=== PATIENT | male | born 1960 | race Hispanic/Latino ===

== ENCOUNTER 2020-07-06 09:52 | Inpatient (IN) | payer OTHER, SELFPAY ==
[~2020-07-06] VITALS: Ht 157.5 cm; Wt 56.3 kg
[2020-07-06] MEDS ORDERED: KETOROLAC TROMETHAMINE 60 MG/2 ML VIAL ONE (10:13)
[2020-07-06 10:48] LABS: BASOPHILS % (AUTO) 0.3 % (0.0-5.0); EOSINOPHILS % (AUTO) 0.3 % (0.0-8.0); HEMATOCRIT 34.1 % (42-54); LYMPHOCYTES % (AUTO) 4.4 % (21.0-51.0); MEAN CORPUSCULAR HEMOGLOBIN 31.9 pg (27.0-33.0); MEAN CORPUSCULAR HGB CONC 36.4 g/dL (32.0-36.0); MEAN CORPUSCULAR VOLUME 87.7 fL (79-99); MONOCYTES % (AUTO) 6.5 % (3.0-13.0); PLATELET COUNT (AUTO) 218 K/uL (130-400); RED BLOOD CELL COUNT(AUTO) 3.89 MIL/uL (4.50-6.20); RED CELL DISTRIBUTION WIDTH 11.2 % (11.0-15.5); WHITE BLOOD COUNT (AUTO) 21.5 K/uL (4.8-10.8)
[2020-07-06 10:52] LABS: CREATININE 1.7 mg/dL (0.5-1.5); POTASSIUM 5.8 mmol/L (3.5-5.1)
[2020-07-06] MEDS ORDERED: LIDOCAINE HCL 1% 20 ML VIAL ONE (11:04)
[2020-07-06] MEDS ORDERED: ZOSYN 3.375GM+NS 50ML 50 ML IV ONE (12:39)
[2020-07-06] MEDS ORDERED: INSULIN HUMULIN R 100 UNIT/ML 3ML ONE ×2 (12:39→21:57)
[2020-07-06] MEDS ORDERED: SODIUM CHLORIDE 0.9% 1000ML 1,000 ML IV ONE (12:40)
[2020-07-06] MEDS ORDERED: VANCOMYCIN 1GM+NS 250ML 250 ML IV ONE (12:41)
[2020-07-06] MEDS ORDERED: VANCOMYCIN 1GM+NS 250ML 250 ML IV SCH (14:00)
[2020-07-06] MEDS ORDERED: VANCOMYCIN PROTOCOL PER PHARMACY IV PRN (14:00)
[2020-07-06] MEDS ORDERED: ONDANSETRON HCL 4 MG/2 ML VIAL IV PRN (14:00)
[2020-07-06] MEDS ORDERED: ACETAMINOPHEN 325 MG TAB PO PRN (14:00)
[2020-07-06] MEDS ORDERED: LACTULOSE 20 GM/30 ML UDCUP PO PRN (14:00)
[2020-07-06 14:31] LABS: CRP QUANTITATIVE 207.4 mg/L (0.00-9.0)
[2020-07-06] MEDS ORDERED: ACETAMINOPHEN 325 MG TAB ONE (17:46)
[2020-07-06] MEDS ORDERED: VANCOMYCIN 500MG+NS 100ML 100 ML IV SCH (18:00)
[2020-07-06 18:19] LABS: HEMOGLOBIN A1C 9.8 % (4.0-6.0)
[2020-07-06 21:40] VITALS: BP 179/87
[2020-07-06] MEDS: ZOSYN 3.375GM+NS 50ML 50 ML IV SCH (22:07)
[2020-07-06] MEDS: SODIUM CHLORIDE 0.9% 1000ML 1,000 ML IV SCH (22:07)
[2020-07-06] MEDS: INSULIN GLARGINE 100 UNITS/ML 10 ML VIAL SQ SCH (22:22)
[2020-07-06] MEDS: ACETAMINOPHEN-CODEINE 300/30MG TAB PO PRN (22:30)
[2020-07-06] MEDS ORDERED: AMLODIPINE BESYLATE 5 MG TAB ONE (22:41)
[2020-07-06] MEDS ORDERED: AMLODIPINE BESYLATE 5 MG TAB PO SCH (22:45)
[2020-07-06] MEDS ORDERED: DEXTROSE 50%-WATER 50 ML DISP.SYRIN IV PRN (22:45)
[2020-07-06] MEDS ORDERED: GLUCAGON 1MG KIT 1 MG ML IM PRN (22:45)
[2020-07-07] VITALS (23 sets, daily range): BP systolic 121–188; BP diastolic 68–109
[2020-07-07] MEDS: VANCOMYCIN 500MG+NS 100ML 100 ML IV SCH ×2 (02:04→16:00)
[2020-07-07] MEDS: ZOSYN 3.375GM+NS 50ML 50 ML IV SCH ×3 (05:40→21:21)
[2020-07-07] MEDS: INSULIN HUMULIN R 100 UNIT/ML 3ML SQ SCH ×4 (06:44→22:54)
[2020-07-07] MEDS: ENOXAPARIN SODIUM 40 MG/0.4 ML SYRINGE SQ SCH (09:00)
[2020-07-07] MEDS: FAMOTIDINE 20MG TAB 20 MG TAB PO SCH (09:00)
[2020-07-07] MEDS: AMLODIPINE BESYLATE 5 MG TAB PO SCH (11:18)
[2020-07-07] MEDS: SODIUM CHLORIDE 0.9% 1000ML 1,000 ML IV SCH ×2 (11:20)
[2020-07-07] MEDS: ACETAMINOPHEN-CODEINE 300/30MG TAB PO PRN ×2 (12:18→21:20)
[2020-07-07] MEDS ORDERED: ONDANSETRON HCL 4 MG/2 ML VIAL ONE (15:32)
[2020-07-07] MEDS ORDERED: SUCCINYLCHOLINE CHLORIDE 20 MG/ML 10 ML VIAL ONE (15:32)
[2020-07-07] MEDS ORDERED: LIDOCAINE PF 2% 5ML ABBOJECT ONE (15:32)
[2020-07-07] MEDS ORDERED: DEXAMETHASONE SOD PHOSPHATE 10MG/ML 1ML VIAL ONE (15:33)
[2020-07-07] MEDS ORDERED: GLYCOPYRROLATE 1 MG/5 ML SYRINGE ONE (15:33)
[2020-07-07] MEDS ORDERED: NEOSTIGMINE 5MG/5ML SYR IV ONE (15:33)
[2020-07-07] MEDS ORDERED: PROPOFOL 10 MG/ML 20ML VIAL IV ONE (15:33)
[2020-07-07] MEDS ORDERED: MIDAZOLAM HCL 1 MG/ML 2ML VIAL ONE (15:34)
[2020-07-07] MEDS ORDERED: ROCURONIUM 10MG/1ML SYR 10 MG/ML ML ONE (15:34)
[2020-07-07] MEDS ORDERED: FENTANYL CITRATE PF 50 MCG/1 ML 2ML VIAL ONE (15:34)
[2020-07-07] MEDS ORDERED: ALBUMIN (HUMAN) 5% 500 ML IV ONE (16:52)
--- NOTE | 2020-07-07 17:00 | NUR ---
CM NOTE PATIENT NOT IN ROOM, CM TO FOLLOW UP FOR IA INFORMATION. Addendum: 07/08/20 at 0911 by GOPAL MOURA RN CM Amended: Links added.
[2020-07-07] MEDS ORDERED: METOCLOPRAMIDE 10 MG/2 ML VIAL ONE (17:30)
[2020-07-07] MEDS ORDERED: POTASSIUM CHLORIDE 20MEQ/100ML 100 ML IV PRN (19:45)
[2020-07-07] MEDS: INSULIN GLARGINE 100 UNITS/ML 10 ML VIAL SQ SCH (22:56)
[2020-07-08] VITALS (7 sets, daily range): BP systolic 145–175; BP diastolic 71–87
[2020-07-08] MEDS: VANCOMYCIN 500MG+NS 100ML 100 ML IV SCH ×2 (02:08→13:31)
[2020-07-08] MEDS: SODIUM CHLORIDE 0.9% 1000ML 1,000 ML IV SCH ×3 (05:01→17:11)
[2020-07-08] MEDS: ZOSYN 3.375GM+NS 50ML 50 ML IV SCH ×3 (05:01→20:20)
[2020-07-08 05:20] LABS: HEMATOCRIT 30.2 % (42-54); MEAN CORPUSCULAR HEMOGLOBIN 31.9 pg (27.0-33.0); MEAN CORPUSCULAR HGB CONC 35.1 g/dL (32.0-36.0); RED BLOOD CELL COUNT(AUTO) 3.32 MIL/uL (4.50-6.20); RED CELL DISTRIBUTION WIDTH 11.2 % (11.0-15.5); WHITE BLOOD COUNT (AUTO) 19.1 K/uL (4.8-10.8)
[2020-07-08] MEDS ORDERED: VANCOMYCIN 1GM+NS 250ML 250 ML IV SCH (06:00)
[2020-07-08] MEDS: INSULIN HUMULIN R 100 UNIT/ML 3ML SQ SCH ×4 (06:33→20:20)
--- NOTE | 2020-07-08 07:58 | NUR ---
PATIENT UPDATE PT CAME BACK FROM SURGERY AT [facility] LAST NIGHT S/P ARTHROTOMY, INCISION AND DRAINAGE TO THE RT KNEE. DRESSING DRY AND INTACT TO THE RT KNEE WITH [address] POST OP VITALS TAKEN, PT'S BP ON THE HIGH SIDE, TYLENOL #3 2 TABS GIVEN FOR A PAIN SCORE OF 10. PT NOTED CONFUSED POST OP. FOUND PT AT 2200 AFTER HE PULLED OFF THE DRESSING FROM THE RT KNEE AND WAS ABOUT TO PULL ON THE ASTER. PT WAS ALERTED RIGHT AWAY. HE SAID HE'S WONDERING WHAT THAT IS ON HIS RT KNEE. EXPLAINED THAT DR. ESTRADA DID SURGERY ON HIS RT KNEE AND LEFT THE ASTER DRAIN . SITE PAINTED WITH BETADINE, 4X4 GAUZE AND ABD PAD APPLIED AND WRAPPED KERLIX ROLL AROUND THE KNEE, REINFORCED WITH THE JUSTIN WRAP. PT ALSO MADE AWARE TO CALL SHOULD HE NEEDS TO GET UP TO THE RESTROOM. FOUND HIM COMING BACK FR THE TOILET WITHOUT A GOWN ON WITH THE ASTER DRAIN HANGING ON THE SIDE. REINFORCED SAFETY PRECAUTIONS AGAIN. REORIENTED X 3, BED ALARM TURNED ON, PT TO BE MONITORED MORE CLOSELY NOW THAN BEFORE.
[2020-07-08] MEDS: ENOXAPARIN SODIUM 40 MG/0.4 ML SYRINGE SQ SCH (08:30)
[2020-07-08] MEDS: AMLODIPINE BESYLATE 5 MG TAB PO SCH (08:30)
[2020-07-08] MEDS: FAMOTIDINE 20MG TAB 20 MG TAB PO SCH (08:30)
--- NOTE | 2020-07-08 13:57 | NUR ---
PER WGT TO RIGHT LEG TOLERATED.
[2020-07-08] MEDS ORDERED: VANCOMYCIN 500MG+NS 100ML 100 ML IV SCH (17:30)
[2020-07-08] MEDS: INSULIN GLARGINE 100 UNITS/ML 10 ML VIAL SQ SCH (20:21)
[2020-07-08] MEDS ORDERED: LABETALOL 20 MG/4 ML DISP.SYRIN IV SCH (23:00)
[2020-07-09] VITALS (7 sets, daily range): BP systolic 143–184; BP diastolic 72–94
[2020-07-09] MEDS: CEFAZOLIN SODIUM 1 GM VIAL IVP SCH ×3 (00:21→17:55)
[2020-07-09] MEDS: ZOSYN 3.375GM+NS 50ML 50 ML IV SCH (04:43)
[2020-07-09 05:10] LABS: BASOPHILS % (AUTO) 0.1 % (0.0-5.0); EOSINOPHILS % (AUTO) 0.2 % (0.0-8.0); HEMATOCRIT 28.8 % (42-54); LYMPHOCYTES % (AUTO) 5.7 % (21.0-51.0); MEAN CORPUSCULAR HEMOGLOBIN 31.7 pg (27.0-33.0); MEAN CORPUSCULAR HGB CONC 35.4 g/dL (32.0-36.0); MEAN CORPUSCULAR VOLUME 89.4 fL (79-99); MONOCYTES % (AUTO) 6.5 % (3.0-13.0); NEUTROPHILS % (AUTO) 86.9 % (40.0-77.0); PLATELET COUNT (AUTO) 228 K/uL (130-400); RED BLOOD CELL COUNT(AUTO) 3.22 MIL/uL (4.50-6.20); RED CELL DISTRIBUTION WIDTH 11.3 % (11.0-15.5); WHITE BLOOD COUNT (AUTO) 21.9 K/uL (4.8-10.8)
[2020-07-09 05:23] LABS: CREATININE 1.2 mg/dL (0.5-1.5); CRP QUANTITATIVE 179.9 mg/L (0.00-9.0); POTASSIUM 4.7 mmol/L (3.5-5.1)
[2020-07-09] MEDS: INSULIN HUMULIN R 100 UNIT/ML 3ML SQ SCH ×7 (05:32→21:00)
[2020-07-09] MEDS ORDERED: VANCOMYCIN 1GM+NS 250ML 250 ML IV SCH (06:00)
[2020-07-09 06:12] LABS: ERYTHROCYTE SEDIMENTATION RATE 134 MM/HR (0-20)
[2020-07-09] MEDS ORDERED: COMPOUND IV REFRIGERATED 1 EACH IVSOLN MISC PRN (07:45)
[2020-07-09] MEDS: FAMOTIDINE 20MG TAB 20 MG TAB PO SCH (09:17)
[2020-07-09] MEDS: AMLODIPINE BESYLATE 5 MG TAB PO SCH (09:17)
[2020-07-09] MEDS: METOPROLOL TARTRATE 25 MG TAB PO SCH ×2 (09:18→21:21)
[2020-07-09] MEDS: ENOXAPARIN SODIUM 40 MG/0.4 ML SYRINGE SQ SCH (09:18)
[2020-07-09] MEDS: ACETAMINOPHEN-CODEINE 300/30MG TAB PO PRN ×2 (09:19→17:56)
[2020-07-09] MEDS ORDERED: VANCOMYCIN 750MG + NS 250 ML IV SCH ×2 (12:00)
[2020-07-09] MEDS ORDERED: KETOROLAC TROMETHAMINE 30MG/ML IV PRN (14:00)
[2020-07-09] MEDS ORDERED: BISACODYL 5 MG TABLET.DR PO PRN (19:45)
[2020-07-09] MEDS: INSULIN GLARGINE 100 UNITS/ML 10 ML VIAL SQ SCH (21:00)
[2020-07-09] MEDS: ACETAMINOPHEN 325 MG TAB PO PRN (21:58)
[2020-07-10] VITALS (24 sets, daily range): BP systolic 128–176; BP diastolic 67–96
[2020-07-10] MEDS: CEFAZOLIN SODIUM 1 GM VIAL IVP SCH ×3 (00:08→18:02)
[2020-07-10] MEDS ORDERED: METOPROLOL TARTRATE 1 MG/ML 5ML VIAL IV ONE (04:20)
--- NOTE | 2020-07-10 04:24 | NUR ---
Patient's b/p up to 182/76, hr of 100 and also 176/87 with hr of 106. Bjorn ASH MIXING TANK OPERATOR paged via answering service, answered within a few minutes. Informed him of above, informed him what b/p medication he had taken yesterday, orders received for Lopressor 5 mg IVP x1 . Patient made aware of new orders, verbalized understanding.
[2020-07-10] MEDS: METOPROLOL TARTRATE 1 MG/ML 5ML VIAL IV SCH (04:30)
--- NOTE | 2020-07-10 05:16 | NUR ---
Patient's b/p down to 168/72 manual reading and hr of 96. No s/s of elevated b/p.
[2020-07-10] MEDS: INSULIN HUMULIN R 100 UNIT/ML 3ML SQ SCH ×7 (05:26→20:06)
[2020-07-10 05:53] LABS: BASOPHILS % (AUTO) 0.2 % (0.0-5.0); EOSINOPHILS % (AUTO) 0.1 % (0.0-8.0); HEMATOCRIT 34.4 % (42-54); LYMPHOCYTES % (AUTO) 6.6 % (21.0-51.0); MEAN CORPUSCULAR HEMOGLOBIN 31.4 pg (27.0-33.0); MEAN CORPUSCULAR HGB CONC 34.9 g/dL (32.0-36.0); MEAN CORPUSCULAR VOLUME 90.1 fL (79-99); MONOCYTES % (AUTO) 5.9 % (3.0-13.0); NEUTROPHILS % (AUTO) 86.2 % (40.0-77.0); PLATELET COUNT (AUTO) 278 K/uL (130-400); RED BLOOD CELL COUNT(AUTO) 3.82 MIL/uL (4.50-6.20); RED CELL DISTRIBUTION WIDTH 11.2 % (11.0-15.5); WHITE BLOOD COUNT (AUTO) 18.4 K/uL (4.8-10.8)
[2020-07-10 06:16] LABS: CREATININE 1.1 mg/dL (0.5-1.5); POTASSIUM 4.4 mmol/L (3.5-5.1)
[2020-07-10 06:39] LABS: CRP QUANTITATIVE 187.9 mg/L (0.00-9.0)
--- NOTE | 2020-07-10 07:05 | NUR ---
REPORT TAKEN FROM P.M. NURSE, PT TAKEN TO PROCEDURE. UNABLE TO COMPLETE ASSESSMENT AT THIS TIME.
[2020-07-10 07:12] LABS: ERYTHROCYTE SEDIMENTATION RATE 136 MM/HR (0-20)
[2020-07-10] MEDS ORDERED: SODIUM CHLORIDE 0.9% 1000ML 1,000 ML IV ONE (07:16)
[2020-07-10] MEDS ORDERED: METOCLOPRAMIDE 10 MG/2 ML VIAL ONE (07:28)
[2020-07-10] MEDS ORDERED: ONDANSETRON HCL 4 MG/2 ML VIAL ONE (07:28)
[2020-07-10] MEDS ORDERED: LIDOCAINE HCL 2% 20ML ONE (07:37)
[2020-07-10] MEDS ORDERED: ROPIVACAINE 0.5% 5MG/ML 30ML IJ ONE (07:37)
[2020-07-10] MEDS ORDERED: PROPOFOL 10 MG/ML 20ML VIAL IV ONE (08:08)
[2020-07-10] MEDS: ENOXAPARIN SODIUM 40 MG/0.4 ML SYRINGE SQ SCH (09:00)
[2020-07-10 09:37] LABS: ABG BASE EXCESS -3.3 mmol/L (-2.0-3.0); ABG HCO3 18.3 mmol/L (21.0-28.0); ABG OXYGEN SATURATION 98.6 % (95.0-99.0); ABG PCO2 23 mmHg (35-48)
--- NOTE | 2020-07-10 10:20 | NUR ---
PT BACK IN ROOM POST-PROCEDURE. VS STABLE PT AAOX3. PT DENIES ANY PAIN , IN NO APPARENT DISTRESS. WOUND VAC NOTED TO RT KNEE, SETTINGS AT 125 mmHg continuous,AND ASTER DRAIN TO RT KNEE DRESSING DRY AND INTACT. PT REMAINS IN BED WITH SIDE RAILS UP X2 WITH CALL LIGHT IN REACH. WILL CONTINUE TO MONITOR PT.
[2020-07-10] MEDS: FAMOTIDINE 20MG TAB 20 MG TAB PO SCH (13:09)
[2020-07-10] MEDS: AMLODIPINE BESYLATE 5 MG TAB PO SCH (13:09)
[2020-07-10] MEDS: METOPROLOL TARTRATE 25 MG TAB PO SCH ×2 (13:10→20:05)
--- NOTE | 2020-07-10 16:17 | NUR ---
CALLED DR EVANS REGARDING CONSULT. NO ANSWER, LEFT S MESSAGE. PENDING CALL BACK.
--- NOTE | 2020-07-10 16:48 | NUR ---
INITIAL SW spoke with patient's girlfriend, Ana Rosa Perez, [phone]. Patient lives with his mother. He has no home services at this time. DME: glucometer (no insulin). Patient is able to drive and complete ADL's independently. No PCP. Pharmacy is [facility] located in [place]. Patient has no insurance or benefits. He is a [place] citizen and has worked in the . Patient was provided with community resources for post hospitalization follow up. Patient was also provided with Good RX card for prescriptions and educated on [facility] $4 medication program and [facility] $5 medication program. Patient is being assisted by [employer] for financial matters. Addendum: 07/10/20 at 1651 by PEG HALL SS Amended: Links added.
--- NOTE | 2020-07-10 16:57 | NUR ---
07/10/20 1657: SPOKE WITH DR EVANS REGARDING CONSULT. 07/10/20 1729: COVID RAPID RESULTS CAME IN POSITIVE. NOTIFIED DR EVANS. PLANS FOR EGD CX. NOTIFIED SARWAT,FURNITURE ARRANGER NURSE. SHE NOTIFIED DR CANDELARIA.
[2020-07-10 17:08] LABS: INR 1.14 (0.85-1.15); PARTIAL THROMBOPLASTIN TIME 32.4 SEC (26.3-35.5); PROTHROMBIN TIME 12.3 SEC (9.6-11.6)
[2020-07-10] MEDS ORDERED: PANTOPRAZOLE SODIUM 80 MG in SODIUM CHLORIDE 0.9% 100 ML IVP SCH (18:30)
[2020-07-10] MEDS ORDERED: COMPOUND IV REFRIGERATED 1 EACH IVSOLN MISC PRN (19:15)
[2020-07-10] MEDS ORDERED: RENAL DOSE IV SCH (19:30)
[2020-07-10] MEDS ORDERED: BISACODYL 10 MG SUPP.RECT RC PRN (19:45)
[2020-07-10] MEDS ORDERED: PANTOPRAZOLE 40 MG/VIAL IVP SCH (19:50)
[2020-07-10] MEDS: ZOSYN 3.375GM+NS 50ML 50 ML IV SCH (20:05)
[2020-07-10] MEDS: INSULIN GLARGINE 100 UNITS/ML 10 ML VIAL SQ SCH (20:07)
[2020-07-11] MEDS: METOCLOPRAMIDE 10 MG/2 ML VIAL IVP SCH ×4 (00:36→18:35)
[2020-07-11] MEDS: CEFAZOLIN SODIUM 1 GM VIAL IVP SCH ×2 (00:36→10:23)
--- NOTE | 2020-07-11 00:39 | NUR ---
Patient received to unit after 2300 with no s/s of distress noted. patient communicating well with no problems. wound vac sealed and suctioning well with no problems. Intact dressing noted to right lower extremity with bulb syringe noted. will continue to monitor during tour as needed
[2020-07-11 03:22] VITALS: BP 154/68
[2020-07-11] MEDS: ZOSYN 3.375GM+NS 50ML 50 ML IV SCH ×3 (04:00→20:18)
[2020-07-11] MEDS: METOPROLOL TARTRATE 1 MG/ML 5ML VIAL IV SCH (04:30)
[2020-07-11 05:04] LABS: BASOPHILS % (AUTO) 0.2 % (0.0-5.0); HEMATOCRIT 26.6 % (42-54); LYMPHOCYTES % (AUTO) 7.4 % (21.0-51.0); MEAN CORPUSCULAR HEMOGLOBIN 31.1 pg (27.0-33.0); MONOCYTES % (AUTO) 8.2 % (3.0-13.0); NEUTROPHILS % (AUTO) 82.1 % (40.0-77.0); PLATELET COUNT (AUTO) 285 K/uL (130-400); RED BLOOD CELL COUNT(AUTO) 2.99 MIL/uL (4.50-6.20); RED CELL DISTRIBUTION WIDTH 11.1 % (11.0-15.5); WHITE BLOOD COUNT (AUTO) 18.7 K/uL (4.8-10.8)
[2020-07-11 05:22] LABS: CREATININE 1.3 mg/dL (0.5-1.5)
[2020-07-11 06:03] LABS: ERYTHROCYTE SEDIMENTATION RATE 145 MM/HR (0-20)
[2020-07-11 06:15] LABS: CRP QUANTITATIVE 226.7 mg/L (0.00-9.0)
[2020-07-11] MEDS: INSULIN HUMULIN R 100 UNIT/ML 3ML SQ SCH ×7 (06:48→21:00)
[2020-07-11 07:40] VITALS: BP 150/76
[2020-07-11] MEDS: ENOXAPARIN SODIUM 40 MG/0.4 ML SYRINGE SQ SCH ×2 (10:23→20:19)
[2020-07-11] MEDS: FAMOTIDINE 20MG TAB 20 MG TAB PO SCH (10:24)
[2020-07-11] MEDS: METOPROLOL TARTRATE 25 MG TAB PO SCH ×2 (10:24→20:19)
[2020-07-11] MEDS: AMLODIPINE BESYLATE 5 MG TAB PO SCH (10:24)
[2020-07-11 12:00] VITALS: BP 110/58
--- NOTE | 2020-07-11 15:00 | NUR ---
NOTE DR BEAN FROM WOUND CARE CAME BY TO CONSULT PATIENT FOR WOUND CARE MANAGEMENT OF WOUND VAC. ASSISTANTS REMOVED WOUND VAC AND APPLIED A SALINE GAUZE AND COVERED WITH GAUZE AND KERLEX AND GAVE ORDERS TO APPLY WOUND VAC AND SETTINGS. REFER TO CHART FOR ORDERS.
[2020-07-11] MEDS ORDERED: PHARMACY COMMUNICATION MISC SCH (15:30)
[2020-07-11 16:00] VITALS: BP 124/62
--- NOTE | 2020-07-11 16:17 | NUR ---
[facility] CONSULT Patient assessed by [facility] team. See Inpatient Wound Assessment. Assessment and recommendations discussed with primary nurse. Orders entered. Education provided. Addendum: 07/11/20 at 1617 by JUD ALANIZ LVN LVN W Amended: Links added.
--- NOTE | 2020-07-11 17:30 | NUR ---
NOTE NOTIFIED DR OATES ABOUT PATIENT REFUSING CONVALESCENT PLASMA AND ALSO DR GRIJALVA CALLED BACK REGARDING CONSULT AND GAVE ORDERS. ORDERS FOR PROTONIX CLARIFIED.
[2020-07-11 20:00] VITALS: BP 125/71
[2020-07-11] MEDS: DOXYCYCLINE HYCLATE 100 MG TABLET PO SCH (20:18)
[2020-07-11] MEDS: DEXAMETHASONE 4 MG TAB PO SCH (20:18)
[2020-07-11] MEDS: PANTOPRAZOLE SODIUM 40 MG TABLET.DR PO SCH (20:19)
[2020-07-11] MEDS ORDERED: PANTOPRAZOLE 40 MG/VIAL IVP SCH (21:00)
[2020-07-11] MEDS: INSULIN GLARGINE 100 UNITS/ML 10 ML VIAL SQ SCH (21:00)
[2020-07-12] VITALS (7 sets, daily range): BP systolic 116–140; BP diastolic 62–72
[2020-07-12] MEDS: METOCLOPRAMIDE 10 MG/2 ML VIAL IVP SCH ×5 (00:51→21:46)
[2020-07-12] MEDS: METOPROLOL TARTRATE 1 MG/ML 5ML VIAL IV SCH (04:30)
[2020-07-12 04:59] LABS: BASOPHILS % (AUTO) 0.2 % (0.0-5.0); HEMATOCRIT 25.1 % (42-54); LYMPHOCYTES % (AUTO) 6.6 % (21.0-51.0); MEAN CORPUSCULAR HEMOGLOBIN 31.8 pg (27.0-33.0); MEAN CORPUSCULAR HGB CONC 35.9 g/dL (32.0-36.0); MEAN CORPUSCULAR VOLUME 88.7 fL (79-99); MONOCYTES % (AUTO) 2.8 % (3.0-13.0); PLATELET COUNT (AUTO) 325 K/uL (130-400); RED BLOOD CELL COUNT(AUTO) 2.83 MIL/uL (4.50-6.20); WHITE BLOOD COUNT (AUTO) 12.6 K/uL (4.8-10.8)
[2020-07-12] MEDS: ZOSYN 3.375GM+NS 50ML 50 ML IV SCH ×3 (05:09→21:45)
[2020-07-12 05:19] LABS: ALBUMIN 1.2 g/dL (3.5-5.0); BILIRUBIN,TOTAL 0.6 mg/dL (0.2-1.0); CREATININE 1.2 mg/dL (0.5-1.5); POTASSIUM 4.5 mmol/L (3.5-5.1); TOTAL PROTEIN, SERUM 6.1 g/dL (6.0-8.3)
[2020-07-12 05:46] LABS: CRP QUANTITATIVE 175.5 mg/L (0.00-9.0)
[2020-07-12] MEDS: INSULIN HUMULIN R 100 UNIT/ML 3ML SQ SCH ×7 (05:47→21:48)
--- NOTE | 2020-07-12 05:50 | NUR ---
Wound care and shift care...Received patient with dry dressing to right thigh with drainage tubing noted. no wound vac dressing noted to site. received report from nurse that wound care team changed dressing but did not put on wound vac dressing. no wound vac dressing available. Patient continued during tour with dry dressing noted site. patient denied pain to site and rested well during tour. will continue to monitor and inform oncoming nurse of care.
--- NOTE | 2020-07-12 08:00 | NUR ---
0730 PATIENT CURRENTLY LAYING IN BED IN SUPINE POSITION RESTING COMFORTABLY. RIGHT KNEE GAUZE DRESSING WITH KERLIX NOTED TO RIGHT KNEE. RIGHT KNEE ASTER DRAIN COMPRESSED . PATIENT CURRENTLY ON SUPPLEMENTAL O2 AT 3-4L PER NC, NO VISIBLE RESPIRATORY DISTRESS. INFORMED BY ANIMAL SHELTER MANAGER NURSE THAT WOUND VAC DRESSING NEEDED TO RIGHT KNEE BUT WAS NOT ABLE TO OBTAIN WOUND VAC DRESSING.
[2020-07-12] MEDS: AMLODIPINE BESYLATE 5 MG TAB PO SCH (09:19)
[2020-07-12] MEDS: DEXAMETHASONE 4 MG TAB PO SCH (09:20)
[2020-07-12] MEDS: PANTOPRAZOLE SODIUM 40 MG TABLET.DR PO SCH ×2 (09:20→21:45)
[2020-07-12] MEDS: DOXYCYCLINE HYCLATE 100 MG TABLET PO SCH ×2 (09:20→21:46)
[2020-07-12] MEDS: METOPROLOL TARTRATE 25 MG TAB PO SCH ×2 (09:20→21:45)
[2020-07-12] MEDS: ENOXAPARIN SODIUM 40 MG/0.4 ML SYRINGE SQ SCH ×2 (09:21→21:47)
[2020-07-12] MEDS ORDERED: PHARMACY COMMUNICATION MISC SCH (11:00)
--- NOTE | 2020-07-12 11:00 | NUR ---
Refused Wound Vac Placement Informed patient that I needed to place new wound vac dressing. Patient asked "Will I have to be hooked up to that machine again?" as he pointed to Wound VAC therapy system. And I replied "Yes, thats how that wound VAC therapy works." I then educated patient on purpose of wound VAC suction therapy and informed that wound care MD, Dr. Abernathy ordered to place wound vac therapy to right knee. Patient then replied "No. No, I don't want it. I hated to be hooked up to that machine all the time. I could never walk with it." I then clarified "So, you do not want me to place a new Wound Vac dressing right now?" And patient replied "No, I don't want it anymore."
[2020-07-12] MEDS ORDERED: COMPOUND IV REFRIGERATED 1 EACH IVSOLN MISC PRN (15:00)
[2020-07-12] MEDS ORDERED: REMDESIVIR (EUA) 520 200 MG in SODIUM CHLORIDE 0.9% 250 ML IV ONE (15:00)
[2020-07-12] MEDS ORDERED: PANTOPRAZOLE 40 MG/VIAL IVP SCH (21:00)
[2020-07-12] MEDS: INSULIN GLARGINE 100 UNITS/ML 10 ML VIAL SQ SCH (21:48)
[2020-07-13 03:16] VITALS: BP 135/49
[2020-07-13] MEDS: METOCLOPRAMIDE 10 MG/2 ML VIAL IVP SCH ×3 (03:36→18:30)
[2020-07-13] MEDS: ZOSYN 3.375GM+NS 50ML 50 ML IV SCH ×3 (03:36→20:05)
[2020-07-13] MEDS: PHARMACY COMMUNICATION MISC SCH (04:07)
[2020-07-13] MEDS: METOPROLOL TARTRATE 1 MG/ML 5ML VIAL IV SCH (04:22)
[2020-07-13 05:14] LABS: MEAN CORPUSCULAR HEMOGLOBIN 31.6 pg (27.0-33.0); MEAN CORPUSCULAR HGB CONC 35.8 g/dL (32.0-36.0); MEAN CORPUSCULAR VOLUME 88.2 fL (79-99); RED BLOOD CELL COUNT(AUTO) 2.72 MIL/uL (4.50-6.20); RED CELL DISTRIBUTION WIDTH 11.3 % (11.0-15.5); WHITE BLOOD COUNT (AUTO) 13.5 K/uL (4.8-10.8)
[2020-07-13 05:43] LABS: ALBUMIN 1.3 g/dL (3.5-5.0); BILIRUBIN,DIRECT 0.3 mg/dL (0.0-0.3); BILIRUBIN,TOTAL 0.5 mg/dL (0.2-1.0); CREATININE 1.1 mg/dL (0.5-1.5)
[2020-07-13] MEDS: INSULIN HUMULIN R 100 UNIT/ML 3ML SQ SCH ×7 (06:12→20:05)
[2020-07-13 08:01] VITALS: BP 163/67
[2020-07-13] MEDS: PANTOPRAZOLE SODIUM 40 MG TABLET.DR PO SCH ×2 (08:38→20:05)
[2020-07-13] MEDS: DOXYCYCLINE HYCLATE 100 MG TABLET PO SCH ×2 (08:39→20:05)
[2020-07-13] MEDS: METOPROLOL TARTRATE 25 MG TAB PO SCH ×2 (08:39→20:05)
[2020-07-13] MEDS: ENOXAPARIN SODIUM 40 MG/0.4 ML SYRINGE SQ SCH (08:39)
[2020-07-13] MEDS: DEXAMETHASONE 4 MG TAB PO SCH (08:39)
[2020-07-13] MEDS: AMLODIPINE BESYLATE 5 MG TAB PO SCH (08:39)
--- NOTE | 2020-07-13 09:00 | NUR ---
WOUND CARE PROVIDED REMOVED OLD DRESSING FROM OPEN WOUND. OLD DRESSING MODERATE AMOUNT OF SEROSANGUINEOUS DRAINAGE WITH NO FOUL ODOR AND NO ACTIVE DRAINAGE TO WOUND. NO REDNESS, SWELLING OR TENDERNESS. CLEANSED WITH NS. APPLIED 4X4 WET TO DRY DRESSING, SECURED WITH TAPE. OLD DRESSING REMOVED FROM INCISION WITH RUPAL WITH LARGE AMOUNT OF SEROSANGUINEOUS DRAINAGE TO OLD DRESSING. NO ACTIVE DRAINAGE TO INCISION. CLEANSED WITH NS. NO REDNESS OR TENDERNESS. MILD SWELLING. APPLIED 4X4 GAUZED SECURED WITH TAPE. PT TOLERATED PROCEDURE WELL. CHANGED DRESSING TO ASTER DRAIN SITE, CLEAN AND DRY. ASTER DRAINING SEROSANGUINEOUS DRAINAGE.
[2020-07-13 12:16] VITALS: BP 147/65
--- NOTE | 2020-07-13 14:47 | NUR ---
NOTIFIED DR. ESTRADA REGARDING PT'S REFUSAL OF WOUND VAC SINCE YESTERDAY GIVEN IN REPORT FROM MIHIR BRIAN. DR. ESTRADA VERBALIZED UNDERSTANDING.
[2020-07-13] MEDS: REMDESIVIR (EUA) 520 100 MG in SODIUM CHLORIDE 0.9% 250 ML IV SCH (15:15)
--- NOTE | 2020-07-13 16:07 | NUR ---
RDSCREEN - LOS X 7 Pt admitted with Septic arthritis, acute renal failure. Pt underwent Arthrocentesis and debridement of abscesses of lower extremity x2. Pt then resulted in positive for COVID-19 infection. Pt with fair PO intake on Soft/[place] diet. Monitored Labs: WBC 13.5, H/H 8.6/24.0, Na 131, BUN 27, BG 118, Ca 8.0, Ferritin 969, AST 68, Alk 223, CRP 95.30, Alb 1.3. Remdesivir, Humulin R, Reglan, Piperacillin, Dexamethasone, Doxy, Lopressor medications in place. Recommend to continue current diet order as tolerated. Recommend 500mg Vitamin BID, 220mg Zinc immune support supplementation Recommend 60mL ProMod BID secondary to increased protein needs. RD to continue to monitor. Please notify as additional nutrition concerns arise. thank you. Addendum: 07/13/20 at [address] Amended: Links added.
[2020-07-13 16:13] VITALS: BP 148/75
[2020-07-13 20:05] VITALS: BP 156/67
[2020-07-13] MEDS: INSULIN GLARGINE 100 UNITS/ML 10 ML VIAL SQ SCH (20:24)
[2020-07-14] VITALS (8 sets, daily range): BP systolic 111–167; BP diastolic 62–85
[2020-07-14] MEDS: METOCLOPRAMIDE 10 MG/2 ML VIAL IVP SCH ×5 (00:29→23:53)
[2020-07-14] MEDS: ZOSYN 3.375GM+NS 50ML 50 ML IV SCH ×3 (03:38→20:08)
[2020-07-14] MEDS: METOPROLOL TARTRATE 1 MG/ML 5ML VIAL IV SCH (04:01)
[2020-07-14 05:26] LABS: HEMATOCRIT 24.6 % (42-54); MEAN CORPUSCULAR HEMOGLOBIN 31.9 pg (27.0-33.0); MEAN CORPUSCULAR HGB CONC 36.6 g/dL (32.0-36.0); MEAN CORPUSCULAR VOLUME 87.2 fL (79-99); PLATELET COUNT (AUTO) 437 K/uL (130-400); RED BLOOD CELL COUNT(AUTO) 2.82 MIL/uL (4.50-6.20); RED CELL DISTRIBUTION WIDTH 11.3 % (11.0-15.5); WHITE BLOOD COUNT (AUTO) 14.7 K/uL (4.8-10.8)
[2020-07-14 05:45] LABS: ALBUMIN 1.5 g/dL (3.5-5.0); BILIRUBIN,TOTAL 0.6 mg/dL (0.2-1.0); CRP QUANTITATIVE 54.6 mg/L (0.00-9.0); POTASSIUM 3.9 mmol/L (3.5-5.1); TOTAL PROTEIN, SERUM 6.1 g/dL (6.0-8.3)
[2020-07-14] MEDS: PHARMACY COMMUNICATION MISC SCH (06:00)
[2020-07-14] MEDS: INSULIN HUMULIN R 100 UNIT/ML 3ML SQ SCH ×7 (06:28→20:09)
[2020-07-14] MEDS: ENOXAPARIN SODIUM 40 MG/0.4 ML SYRINGE SQ SCH (09:39)
[2020-07-14] MEDS: METOPROLOL TARTRATE 25 MG TAB PO SCH ×2 (09:39→20:09)
[2020-07-14] MEDS: PANTOPRAZOLE SODIUM 40 MG TABLET.DR PO SCH ×2 (09:40→20:09)
[2020-07-14] MEDS: DEXAMETHASONE 4 MG TAB PO SCH (09:40)
[2020-07-14] MEDS: DOXYCYCLINE HYCLATE 100 MG TABLET PO SCH ×2 (09:40→20:09)
[2020-07-14] MEDS: AMLODIPINE BESYLATE 5 MG TAB PO SCH (09:40)
--- NOTE | 2020-07-14 12:00 | NUR ---
WOUND CARE PROVIDED. PICTURES TAKEN. CAMERA GIVEN TO MIHIR GANT. WOUND CARE PER MD ORDERS. PT TOLERATED WELL. REMOVED OLD DRESSING WITH MINIMAL OLD SEROSANGUINEOUS DRAINAGE AND NO ACTIVE DRAINAGE. CLEANSED WITH NS. APPLIED WET TO DRY DRESSING. NO REDNESS, SWELLING OR TENDERNESS. TOLERATED PROCEDURE WELL . Addendum: 07/14/20 at 1616 by DIRK IBRAHIM RN ENTERED WRONG TIME WHEN WOUND CARE DONE.
--- NOTE | 2020-07-14 15:00 | NUR ---
CALLED AND NOTIFIED DR. CRYSTAL BEAN RE PT'S REFUSAL OF WOUND VAC REFUSED ON OFF ON 07/12/20. SEE NURSE'S NOTES. DR. BEAN SAID HE WOULD BE IN TODAY TO SEE PATIENT.
[2020-07-14] MEDS: REMDESIVIR (EUA) 520 100 MG in SODIUM CHLORIDE 0.9% 250 ML IV SCH (15:10)
--- NOTE | 2020-07-14 17:00 | NUR ---
DR. ESTRADA MADE AWARE OF ASTER DRAIN OUT. ASTER DRAIN OUT WHEN IN TO ASSESS PATIENT. ASTER DRAIN SITE CLEAN AND DRY WITH MINUTE AMOUNT OF SANGUINEOUS DRAINAGE. CLEANSED WITH NS, APPLIED 4X4 GAUZE SECURED W TAPE. ASTER DRAIN TUBE INTACT. WILL CONTINUE TO MONITOR.
[2020-07-14] MEDS: HONEY 1 APPL/ML TUBE TP SCH (17:15)
[2020-07-14] MEDS: INSULIN GLARGINE 100 UNITS/ML 10 ML VIAL SQ SCH (20:11)
[2020-07-15 04:16] VITALS: BP 141/75
[2020-07-15] MEDS: ZOSYN 3.375GM+NS 50ML 50 ML IV SCH ×3 (04:28→20:04)
[2020-07-15 05:45] LABS: HEMATOCRIT 24.7 % (42-54)
[2020-07-15 05:58] LABS: ALBUMIN 1.5 g/dL (3.5-5.0); BILIRUBIN,TOTAL 0.7 mg/dL (0.2-1.0); CRP QUANTITATIVE 74.8 mg/L (0.00-9.0); POTASSIUM 3.9 mmol/L (3.5-5.1)
[2020-07-15] MEDS: PHARMACY COMMUNICATION MISC SCH (06:00)
[2020-07-15] MEDS: METOCLOPRAMIDE 10 MG/2 ML VIAL IVP SCH ×3 (06:24→17:49)
[2020-07-15] MEDS: INSULIN HUMULIN R 100 UNIT/ML 3ML SQ SCH ×7 (07:30→20:20)
[2020-07-15 08:00] VITALS: BP 146/71
[2020-07-15] MEDS: AMLODIPINE BESYLATE 5 MG TAB PO SCH (08:23)
[2020-07-15] MEDS: DOXYCYCLINE HYCLATE 100 MG TABLET PO SCH ×2 (08:23→20:05)
[2020-07-15] MEDS: METOPROLOL TARTRATE 25 MG TAB PO SCH ×2 (08:23→20:04)
[2020-07-15] MEDS: PANTOPRAZOLE SODIUM 40 MG TABLET.DR PO SCH ×2 (08:23→20:04)
[2020-07-15] MEDS: DEXAMETHASONE 4 MG TAB PO SCH (08:24)
[2020-07-15] MEDS: ENOXAPARIN SODIUM 40 MG/0.4 ML SYRINGE SQ SCH (08:24)
[2020-07-15] MEDS: HONEY 1 APPL/ML TUBE TP SCH (09:00)
[2020-07-15 12:00] VITALS: BP 138/77
[2020-07-15 15:00] VITALS: BP 117/57
[2020-07-15] MEDS: REMDESIVIR (EUA) 520 100 MG in SODIUM CHLORIDE 0.9% 250 ML IV SCH (15:25)
--- NOTE | 2020-07-15 17:27 | NUR ---
PATIENT AGREED TO GO TO [facility] FOR WOUND CARE, ABX AND PT. DAUGHTER CALLED AND SPOKE TO RN AND CONFIRMED THAT THE FAMILY IS IN AGREEMENT WILL START REFERRAL PROCESS IN AM Addendum: 07/15/20 at 1728 by MIGUE GARCIA RN CM Amended: Links added.
[2020-07-15 20:00] VITALS: BP 133/62
[2020-07-15] MEDS: ACETAMINOPHEN-CODEINE 300/30MG TAB PO PRN (20:04)
[2020-07-15] MEDS: INSULIN GLARGINE 100 UNITS/ML 10 ML VIAL SQ SCH (20:21)
[2020-07-16] VITALS (7 sets, daily range): BP systolic 114–162; BP diastolic 63–79
[2020-07-16] MEDS: METOCLOPRAMIDE 10 MG/2 ML VIAL IVP SCH ×3 (00:41→12:30)
[2020-07-16] MEDS: ZOSYN 3.375GM+NS 50ML 50 ML IV SCH ×3 (04:34→20:17)
[2020-07-16 04:50] LABS: HEMATOCRIT 24.2 % (42-54)
[2020-07-16 05:04] LABS: CRP QUANTITATIVE 66.4 mg/L (0.00-9.0); POTASSIUM 3.9 mmol/L (3.5-5.1)
[2020-07-16] MEDS: PHARMACY COMMUNICATION MISC SCH (06:00)
[2020-07-16] MEDS: INSULIN HUMULIN R 100 UNIT/ML 3ML SQ SCH ×5 (07:30→20:21)
[2020-07-16 08:04] LABS: ALBUMIN 1.6 g/dL (3.5-5.0); BILIRUBIN,DIRECT 0.2 mg/dL (0.0-0.3); BILIRUBIN,TOTAL 0.6 mg/dL (0.2-1.0); TOTAL PROTEIN, SERUM 6.1 g/dL (6.0-8.3)
[2020-07-16] MEDS: DOXYCYCLINE HYCLATE 100 MG TABLET PO SCH ×2 (08:51→20:18)
[2020-07-16] MEDS: METOPROLOL TARTRATE 25 MG TAB PO SCH ×2 (08:51→20:18)
[2020-07-16] MEDS: PANTOPRAZOLE SODIUM 40 MG TABLET.DR PO SCH ×2 (08:51→20:18)
[2020-07-16] MEDS: DEXAMETHASONE 4 MG TAB PO SCH (08:52)
[2020-07-16] MEDS: ENOXAPARIN SODIUM 40 MG/0.4 ML SYRINGE SQ SCH (08:52)
[2020-07-16] MEDS: HONEY 1 APPL/ML TUBE TP SCH (08:53)
[2020-07-16] MEDS: AMLODIPINE BESYLATE 5 MG TAB PO SCH (09:03)
[2020-07-16] MEDS: ACETAMINOPHEN-CODEINE 300/30MG TAB PO PRN (09:03)
[2020-07-16 14:21] LABS: INR 1.18 (0.85-1.15); PARTIAL THROMBOPLASTIN TIME 30.9 SEC (26.3-35.5); PROTHROMBIN TIME 12.7 SEC (9.6-11.6)
[2020-07-16] MEDS: REMDESIVIR (EUA) 520 100 MG in SODIUM CHLORIDE 0.9% 250 ML IV SCH (16:07)
--- NOTE | 2020-07-16 18:25 | NUR ---
wanting to go home: Pt verbalized wanting to go home today, explained need of antibiotic infusion for 4 wks d/t wound to right knee, Pt was adamant that he is going home even after explaining the risk of his decision, called CM to help explained to Pt that he doesn't necessary need to spent 4wks in SNF facility which one of Pt's concern, it will be depend on his progress, CM came and spoke to Pt, and Dr. Edwards spoke to the Pt, as of now Pt agreed to stay one more day here in the hospital and be in a SNF facility tomorrow.
[2020-07-16] MEDS ORDERED: FERROUS SULFATE 325 MG TABLET.DR PO SCH (18:30)
--- NOTE | 2020-07-16 18:30 | NUR ---
PICC LINE PLACED RAMON BASILIC VEIN FOLLOWING STERILE TECHNIQUE. VPS BULLSEYE OBTAINED, PT TOLERATED WELL
[2020-07-16] MEDS: INSULIN GLARGINE 100 UNITS/ML 10 ML VIAL SQ SCH (20:22)
[2020-07-16] MEDS ORDERED: FERROUS SULFATE 325 MG TABLET.DR ONE (21:48)
[2020-07-17 03:41] VITALS: BP 171/88
[2020-07-17] MEDS: ZOSYN 3.375GM+NS 50ML 50 ML IV SCH ×2 (03:42→12:15)
[2020-07-17] MEDS ORDERED: METOPROLOL TARTRATE 1 MG/ML 5ML VIAL IV ONE ×2 (04:07→04:15)
[2020-07-17 05:21] VITALS: BP 154/68
[2020-07-17] MEDS: PHARMACY COMMUNICATION MISC SCH (06:00)
[2020-07-17 07:00] VITALS: BP 160/73
[2020-07-17] MEDS: INSULIN HUMULIN R 100 UNIT/ML 3ML SQ SCH ×4 (07:10→21:48)
[2020-07-17 07:18] LABS: HEMATOCRIT 24.5 % (42-54)
[2020-07-17 07:40] LABS: CRP QUANTITATIVE 45.2 mg/L (0.00-9.0); MAGNESIUM 1.4 mg/dL (1.80-2.40)
[2020-07-17] MEDS ORDERED: METFORMIN HCL 500 MG TABLET PO SCH (08:00)
[2020-07-17] MEDS ORDERED: MAGNESIUM 2GM PREMIX 50ML 50 ML IV SCH (08:45)
[2020-07-17] MEDS: FERROUS SULFATE 325 MG TABLET.DR PO SCH (08:47)
[2020-07-17] MEDS: DOXYCYCLINE HYCLATE 100 MG TABLET PO SCH ×2 (08:47→21:44)
[2020-07-17] MEDS: METOPROLOL TARTRATE 25 MG TAB PO SCH ×2 (08:48→21:44)
[2020-07-17] MEDS: AMLODIPINE BESYLATE 5 MG TAB PO SCH (08:48)
[2020-07-17] MEDS: DEXAMETHASONE 4 MG TAB PO SCH (08:48)
[2020-07-17] MEDS: PANTOPRAZOLE SODIUM 40 MG TABLET.DR PO SCH ×2 (08:48→21:44)
[2020-07-17] MEDS: ACETAMINOPHEN 325 MG TAB PO PRN (08:49)
[2020-07-17] MEDS: ENOXAPARIN SODIUM 40 MG/0.4 ML SYRINGE SQ SCH (08:50)
[2020-07-17] MEDS: HONEY 1 APPL/ML TUBE TP SCH (08:52)
[2020-07-17 11:00] VITALS: BP 143/60
--- NOTE | 2020-07-17 12:00 | NUR ---
PATIENT WITH LOW GRADE TEMP THIS AM 100.0, NOTED PURULENT DRAINAGE TO RIGHT KNEE. DR. HOLLIDAY MADE AWARE NEW ORDER CULTURE RIGHT KNEE AND HAVE DR. ESTRADA REASSESS
--- NOTE | 2020-07-17 15:01 | NUR ---
SPOKE WITH DR. ESTRADA MADE AWARE, WILL COME SEE PATIENT
[2020-07-17 16:00] VITALS: BP 127/66
[2020-07-17 19:20] VITALS: BP 143/66
[2020-07-17] MEDS: INSULIN GLARGINE 100 UNITS/ML 10 ML VIAL SQ SCH (21:46)
[2020-07-18] VITALS (7 sets, daily range): BP systolic 127–151; BP diastolic 61–81
[2020-07-18 05:07] LABS: BASOPHILS % (AUTO) 0.2 % (0.0-5.0); EOSINOPHILS % (AUTO) 0.5 % (0.0-8.0); HEMATOCRIT 25.6 % (42-54); MEAN CORPUSCULAR HEMOGLOBIN 31.5 pg (27.0-33.0); MEAN CORPUSCULAR HGB CONC 36.3 g/dL (32.0-36.0); MEAN CORPUSCULAR VOLUME 86.8 fL (79-99); MONOCYTES % (AUTO) 11.6 % (3.0-13.0); NEUTROPHILS % (AUTO) 71.7 % (40.0-77.0); PLATELET COUNT (AUTO) 421 K/uL (130-400); RED BLOOD CELL COUNT(AUTO) 2.95 MIL/uL (4.50-6.20); RED CELL DISTRIBUTION WIDTH 11.7 % (11.0-15.5); WHITE BLOOD COUNT (AUTO) 13.4 K/uL (4.8-10.8)
[2020-07-18 05:21] LABS: POTASSIUM 4.2 mmol/L (3.5-5.1)
[2020-07-18] MEDS: INSULIN HUMULIN R 100 UNIT/ML 3ML SQ SCH ×4 (06:29→20:49)
[2020-07-18] MEDS: DOXYCYCLINE HYCLATE 100 MG TABLET PO SCH ×2 (08:40→20:43)
[2020-07-18] MEDS: FERROUS SULFATE 325 MG TABLET.DR PO SCH (08:40)
[2020-07-18] MEDS: PANTOPRAZOLE SODIUM 40 MG TABLET.DR PO SCH ×2 (08:40→20:43)
[2020-07-18] MEDS: METOPROLOL TARTRATE 25 MG TAB PO SCH ×2 (08:40→20:43)
[2020-07-18] MEDS: DEXAMETHASONE 4 MG TAB PO SCH (08:40)
[2020-07-18] MEDS: AMLODIPINE BESYLATE 5 MG TAB PO SCH (08:41)
[2020-07-18] MEDS: ENOXAPARIN SODIUM 40 MG/0.4 ML SYRINGE SQ SCH ×2 (08:41→20:51)
[2020-07-18] MEDS: HONEY 1 APPL/ML TUBE TP SCH (09:00)
[2020-07-18] MEDS: ZOSYN 3.375GM+NS 50ML 50 ML IV SCH ×2 (11:00→18:06)
--- NOTE | 2020-07-18 12:50 | NUR ---
RD FOLLOW UP Pt tolerating current diet order of GI SOft/Hayes, 75gm CCD. No report of GI distress. Good PO intake at 100%. LBM 07/17/20. Monitored labs: WBC 13.4, Na 127, Cl 96, BUN 21, BG 153, Ca 7.1, CRP 45.2. Pt refusal of wound vac per MD Note. Possible inaccurate weight in EMR. 60mL ProMod protein supplementation in place. Recommend daily MVI and 500mg Vitamin C BID for immune support Recommend continue current diet order RD to continue to monitor. Please notify as additional nutrition concerns arise. Thank you. Addendum: 07/18/20 at [address] Amended: Links added.
--- NOTE | 2020-07-18 14:59 | NUR ---
SPOKE WITH DR. BEAN REGARDING WOUND TO RIGHT KNEE, NOTED WITH PURULENT DRAINAGE. WILL BE IN TO SEE PATIENT TOMORROW
--- NOTE | 2020-07-18 18:43 | NUR ---
DR. ESTRADA ROUNDED, ASSESSED WOUND TO RIGHT KNEE. NEW ORDER I&D TO RIGHT KNEE/LEG. PATIENT CONSENTED. 21 DEALER MADE AWARE.
--- NOTE | 2020-07-18 19:20 | NUR ---
Received report patient is going for I &D tomorrow ,to be placed on NPo and to hold Lovenox tonight.
[2020-07-18] MEDS: INSULIN GLARGINE 100 UNITS/ML 10 ML VIAL SQ SCH (20:49)
--- NOTE | 2020-07-18 22:08 | NUR ---
Patient remained stable,informed regarding NPO status post midnight and patient demonstrated understanding.Due meds given ,L>ovenox held at this time.
[2020-07-19] VITALS (24 sets, daily range): BP systolic 113–158; BP diastolic 54–86
[2020-07-19] MEDS: ZOSYN 3.375GM+NS 50ML 50 ML IV SCH ×3 (01:53→20:48)
[2020-07-19 05:49] LABS: BASOPHILS % (AUTO) 0.2 % (0.0-5.0); EOSINOPHILS % (AUTO) 0.5 % (0.0-8.0); HEMATOCRIT 25.7 % (42-54); LYMPHOCYTES % (AUTO) 14.3 % (21.0-51.0); MEAN CORPUSCULAR HEMOGLOBIN 31.8 pg (27.0-33.0); MEAN CORPUSCULAR HGB CONC 36.6 g/dL (32.0-36.0); MEAN CORPUSCULAR VOLUME 86.8 fL (79-99); MONOCYTES % (AUTO) 11.5 % (3.0-13.0); NEUTROPHILS % (AUTO) 71.4 % (40.0-77.0); PLATELET COUNT (AUTO) 410 K/uL (130-400); RED BLOOD CELL COUNT(AUTO) 2.96 MIL/uL (4.50-6.20); RED CELL DISTRIBUTION WIDTH 11.8 % (11.0-15.5)
[2020-07-19 06:01] LABS: CREATININE 1.1 mg/dL (0.5-1.5); MAGNESIUM 1.6 mg/dL (1.80-2.40); POTASSIUM 4.3 mmol/L (3.5-5.1)
[2020-07-19] MEDS: INSULIN HUMULIN R 100 UNIT/ML 3ML SQ SCH ×4 (06:07→20:54)
--- NOTE | 2020-07-19 08:20 | NUR ---
ASSESSMENT ENCOUNTERED PT A&OX3, CALM COOPERATIVE AND DOES NOT APPEAR TO BE IN ANY DISTRESS NOR ANY NEURO DEFICITS PRESENT. PT DENIES PAIN, SOB, NAUSEA. PT DOES HAVE RT KNEE DRESSINGS, DRY AND INTACT. DP/PT PULSES PALPABLE, PT IS NPO PENDING I&D BY DR ESTRADA. CALL LIGHT WITHIN REACH.
[2020-07-19] MEDS: FERROUS SULFATE 325 MG TABLET.DR PO SCH (09:00)
[2020-07-19] MEDS: PANTOPRAZOLE SODIUM 40 MG TABLET.DR PO SCH ×2 (09:00→20:49)
[2020-07-19] MEDS: DOXYCYCLINE HYCLATE 100 MG TABLET PO SCH ×2 (09:00→20:49)
[2020-07-19] MEDS: HONEY 1 APPL/ML TUBE TP SCH (09:00)
[2020-07-19] MEDS: ENOXAPARIN SODIUM 40 MG/0.4 ML SYRINGE SQ SCH ×2 (09:00→20:49)
[2020-07-19] MEDS: METOPROLOL TARTRATE 25 MG TAB PO SCH ×2 (09:00→20:49)
[2020-07-19] MEDS ORDERED: SUCCINYLCHOLINE 200MG/10ML SYR ONE (13:41)
[2020-07-19] MEDS ORDERED: PROPOFOL 10 MG/ML 20ML VIAL IV ONE (13:41)
[2020-07-19] MEDS ORDERED: LIDOCAINE PF 2% 5ML ABBOJECT ONE (13:41)
[2020-07-19] MEDS ORDERED: ROCURONIUM 10MG/1ML SYR 10 MG/ML ML ONE (13:42)
[2020-07-19] MEDS ORDERED: ONDANSETRON HCL 4 MG/2 ML VIAL ONE (13:42)
[2020-07-19] MEDS ORDERED: FENTANYL CITRATE PF 50 MCG/1 ML 2ML VIAL ONE (14:28)
[2020-07-19] MEDS ORDERED: MEPERIDINE-PF 25 MG/ML SYG ONE (15:02)
[2020-07-19] MEDS: SODIUM CHLORIDE 0.9% 1000ML 1,000 ML IV SCH (15:45)
[2020-07-19] MEDS ORDERED: PHARMACY COMMUNICATION MISC SCH (16:30)
[2020-07-19] MEDS: AMLODIPINE BESYLATE 5 MG TAB PO SCH (16:44)
[2020-07-19] MEDS: DEXAMETHASONE 4 MG TAB PO SCH (16:45)
[2020-07-19] MEDS: ACETAMINOPHEN-CODEINE 300/30MG TAB PO PRN (16:45)
[2020-07-19] MEDS: INSULIN GLARGINE 100 UNITS/ML 10 ML VIAL SQ SCH (20:54)
[2020-07-20 03:59] VITALS: BP 137/79
[2020-07-20] MEDS: ACETAMINOPHEN-CODEINE 300/30MG TAB PO PRN (04:00)
[2020-07-20] MEDS: ZOSYN 3.375GM+NS 50ML 50 ML IV SCH ×2 (04:02→13:29)
[2020-07-20 04:33] LABS: BASOPHILS % (AUTO) 0.1 % (0.0-5.0); HEMATOCRIT 25.3 % (42-54); LYMPHOCYTES % (AUTO) 8.1 % (21.0-51.0); MEAN CORPUSCULAR HEMOGLOBIN 31.3 pg (27.0-33.0); MEAN CORPUSCULAR VOLUME 86.9 fL (79-99); NEUTROPHILS % (AUTO) 84.3 % (40.0-77.0); PLATELET COUNT (AUTO) 369 K/uL (130-400); RED BLOOD CELL COUNT(AUTO) 2.91 MIL/uL (4.50-6.20); RED CELL DISTRIBUTION WIDTH 11.9 % (11.0-15.5); WHITE BLOOD COUNT (AUTO) 14.3 K/uL (4.8-10.8)
[2020-07-20 04:44] LABS: CRP QUANTITATIVE 49.2 mg/L (0.00-9.0); MAGNESIUM 1.7 mg/dL (1.80-2.40); PHOSPHORUS 4.2 mg/dL (2.5-4.9); POTASSIUM 4.7 mmol/L (3.5-5.1)
[2020-07-20] MEDS: SODIUM CHLORIDE 0.9% 1000ML 1,000 ML IV SCH (06:03)
[2020-07-20] MEDS: INSULIN HUMULIN R 100 UNIT/ML 3ML SQ SCH ×3 (06:36→17:18)
[2020-07-20 07:00] VITALS: BP 129/73
[2020-07-20] MEDS: AMLODIPINE BESYLATE 5 MG TAB PO SCH (08:22)
[2020-07-20] MEDS: DEXAMETHASONE 4 MG TAB PO SCH (08:22)
[2020-07-20] MEDS: METOPROLOL TARTRATE 25 MG TAB PO SCH (08:23)
[2020-07-20] MEDS: FERROUS SULFATE 325 MG TABLET.DR PO SCH (08:23)
[2020-07-20] MEDS: ENOXAPARIN SODIUM 40 MG/0.4 ML SYRINGE SQ SCH (08:23)
[2020-07-20] MEDS: DOXYCYCLINE HYCLATE 100 MG TABLET PO SCH (08:23)
[2020-07-20] MEDS: PANTOPRAZOLE SODIUM 40 MG TABLET.DR PO SCH (08:23)
[2020-07-20] MEDS: HONEY 1 APPL/ML TUBE TP SCH (08:24)
[2020-07-20 12:26] VITALS: BP 126/66
--- NOTE | 2020-07-20 16:00 | NUR ---
[facility] WAS CALL AND GAVE REPORT FOR PT TO BE TRANSFERRED, ALL QUESTIONS ANSWERED. EMS ALSO CALL AND GAVE REPORT, PAPERS FAX.
== END 2020-07-20 18:55 | DRG 853 ==
LOC: EDH 09:52 → EDHIP 09:53 → 3CH 20:51 → 2AH 07-10 23:27
PROVIDERS: ADMIT Internal Medicine; ATTEND Internal Medicine
PROC: 0M9N0ZZ Drainage of Right Knee Bursa and Ligament, Open Approach (ICD-10-PCS; principal; 2020-07-08)
PROC: 0JBN0ZZ Excision of Right Lower Leg Subcutaneous Tissue and Fascia, Open Approach (ICD-10-PCS; 2020-07-10)
PROC: 0YBH0ZZ Excision of Right Lower Leg, Open Approach (ICD-10-PCS; 2020-07-19)
DX: A41.01 Sepsis due to Methicillin susceptible Staphylococcus aureus (principal); U07.1 COVID-19; K27.0 Acute peptic ulcer, site unspecified, with hemorrhage; J12.89 Other viral pneumonia; J96.01 Acute respiratory failure with hypoxia; J15.0 Pneumonia due to Klebsiella pneumoniae; K22.6 Gastro-esophageal laceration-hemorrhage syndrome; N17.9 Acute kidney failure, unspecified; D62 Acute posthemorrhagic anemia; J90 Pleural effusion, not elsewhere classified; L02.415 Cutaneous abscess of right lower limb; L03.90 Cellulitis, unspecified; E11.9 Type 2 diabetes mellitus without complications; D64.9 Anemia, unspecified; M19.90 Unspecified osteoarthritis, unspecified site; B96.1 Klebsiella pneumoniae [K. pneumoniae] as the cause of diseases classified elsewhere; B95.61 Methicillin susceptible Staphylococcus aureus infection as the cause of diseases classified elsewhere; R53.81 Other malaise; K21.9 Gastro-esophageal reflux disease without esophagitis; F10.10 Alcohol abuse, uncomplicated; I10 Essential (primary) hypertension; M70.41 Prepatellar bursitis, right knee; Z91.19 Patient's noncompliance with other medical treatment and regimen; Z83.3 Family history of diabetes mellitus
CPT/HCPCS: 36415; 36569; 36600; 71045; 71250; 73562; 74018; 80048; 80053; 80076; 80202; 82435; 82565; 82728; 82803; 82947; 82948; 83036; 83605; 83615; 83735; 84100; 84132; 84145; 84295; 84550; 85014; 85018; 85025; 85027; 85378; 85610; 85651; 85730; 86140; 86900; 86901; 87040; 87070; 87071; 87076; 87077; 87186; 87205; 87426; 97039; A4355; C1894; C9113; G0378; J0330; J0690; J1100; J1650; J1815; J1885; J2001; J2175; J2250; J2405; J2543; J2704; J2710; J2765; J2795; J3010; J3370; J3475; J3490; J7030; J7050; J7070; J7120; J8540; P9045

== ENCOUNTER 2020-07-30 12:24 | Inpatient (IN) | payer OTHER ==
[~2020-07-30] VITALS: Ht 157.5 cm; Wt 56.5 kg
[2020-07-30 14:03] LABS: BASOPHILS % (AUTO) 0.4 % (0.0-5.0); HEMATOCRIT 26.7 % (42-54); LYMPHOCYTES % (AUTO) 12.6 % (21.0-51.0); MEAN CORPUSCULAR HEMOGLOBIN 30.7 pg (27.0-33.0); MEAN CORPUSCULAR HGB CONC 35.2 g/dL (32.0-36.0); MEAN CORPUSCULAR VOLUME 87.3 fL (79-99); MONOCYTES % (AUTO) 4.8 % (3.0-13.0); NEUTROPHILS % (AUTO) 80.8 % (40.0-77.0); PLATELET COUNT (AUTO) 168 K/uL (130-400); RED BLOOD CELL COUNT(AUTO) 3.06 MIL/uL (4.50-6.20); RED CELL DISTRIBUTION WIDTH 11.9 % (11.0-15.5); WHITE BLOOD COUNT (AUTO) 8.1 K/uL (4.8-10.8)
[2020-07-30 14:24] LABS: CREATININE 0.9 mg/dL (0.5-1.5); POTASSIUM 4.7 mmol/L (3.5-5.1)
[2020-07-30 14:28] LABS: ALBUMIN 1.6 g/dL (3.5-5.0); BILIRUBIN,TOTAL 0.5 mg/dL (0.2-1.0); CRP QUANTITATIVE 88.6 mg/L (0.00-9.0); TOTAL PROTEIN, SERUM 6.2 g/dL (6.0-8.3)
[2020-07-30] MEDS: SODIUM CHLORIDE 0.9% 1000ML 1,000 ML IV SCH (17:45)
[2020-07-30] MEDS: MEROPENEM 500 MG VIAL IVP SCH (17:45)
[2020-07-30] MEDS ORDERED: ACETAMINOPHEN 325 MG TAB PO PRN (18:00)
[2020-07-30] MEDS: PANTOPRAZOLE SODIUM 40 MG TABLET.DR PO SCH (21:00)
[2020-07-30] MEDS: INSULIN HUMULIN R 100 UNIT/ML 3ML SQ SCH (21:00)
[2020-07-30] MEDS ORDERED: PANTOPRAZOLE SODIUM 40 MG TABLET.DR ONE (21:40)
[2020-07-30] MEDS ORDERED: INSULIN HUMULIN R 100 UNIT/ML 3ML ONE (21:41)
[2020-07-31] MEDS: MEROPENEM 500 MG VIAL IVP SCH ×3 (01:45→17:45)
[2020-07-31] MEDS ORDERED: ACETAMINOPHEN-CODEINE 300/30MG TAB ONE ×2 (03:31→11:33)
[2020-07-31 04:54] LABS: BASOPHILS % (AUTO) 0.3 % (0.0-5.0); EOSINOPHILS % (AUTO) 1.3 % (0.0-8.0); HEMATOCRIT 23.1 % (42-54); LYMPHOCYTES % (AUTO) 13.9 % (21.0-51.0); MEAN CORPUSCULAR HEMOGLOBIN 31.1 pg (27.0-33.0); MEAN CORPUSCULAR HGB CONC 35.5 g/dL (32.0-36.0); MEAN CORPUSCULAR VOLUME 87.5 fL (79-99); MONOCYTES % (AUTO) 4.7 % (3.0-13.0); NEUTROPHILS % (AUTO) 79.3 % (40.0-77.0); PLATELET COUNT (AUTO) 148 K/uL (130-400); RED BLOOD CELL COUNT(AUTO) 2.64 MIL/uL (4.50-6.20); RED CELL DISTRIBUTION WIDTH 11.9 % (11.0-15.5); WHITE BLOOD COUNT (AUTO) 7.9 K/uL (4.8-10.8)
[2020-07-31 05:28] LABS: ALBUMIN 1.5 g/dL (3.5-5.0); BILIRUBIN,TOTAL 0.5 mg/dL (0.2-1.0); CREATININE 0.9 mg/dL (0.5-1.5); MAGNESIUM 1.9 mg/dL (1.80-2.40); POTASSIUM 4.5 mmol/L (3.5-5.1); TOTAL PROTEIN, SERUM 6.3 g/dL (6.0-8.3)
[2020-07-31] MEDS: SODIUM CHLORIDE 0.9% 1000ML 1,000 ML IV SCH ×2 (07:05→20:25)
[2020-07-31] MEDS: INSULIN HUMULIN R 100 UNIT/ML 3ML SQ SCH ×4 (07:30→21:00)
[2020-07-31] MEDS: PANTOPRAZOLE SODIUM 40 MG TABLET.DR PO SCH ×2 (09:00→21:00)
[2020-07-31] MEDS: ENOXAPARIN SODIUM 30 MG/0.3 ML SQ SCH (09:00)
[2020-07-31] MEDS ORDERED: MEROPENEM 500 MG VIAL ONE (09:14)
[2020-07-31] MEDS ORDERED: PANTOPRAZOLE SODIUM 40 MG TABLET.DR ONE (09:15)
[2020-07-31] MEDS ORDERED: ENOXAPARIN SODIUM 30 MG/0.3 ML SQ ONE (09:15)
[2020-07-31] MEDS ORDERED: PANTOPRAZOLE 40 MG/VIAL ONE (20:34)
[2020-07-31] MEDS ORDERED: SODIUM CHLORIDE 0.9% 1000ML 1,000 ML IV ONE (20:34)
[2020-08-01] MEDS: MEROPENEM 500 MG VIAL IVP SCH ×3 (01:45→17:45)
[2020-08-01] MEDS: INSULIN HUMULIN R 100 UNIT/ML 3ML SQ SCH ×4 (07:30→21:00)
[2020-08-01] MEDS ORDERED: SODIUM CHLORIDE 0.9% 1000ML 1,000 ML IV ONE (08:07)
[2020-08-01] MEDS ORDERED: PANTOPRAZOLE SODIUM 40 MG TABLET.DR ONE ×2 (08:13→21:32)
[2020-08-01] MEDS ORDERED: ENOXAPARIN SODIUM 30 MG/0.3 ML SQ ONE (08:13)
[2020-08-01] MEDS ORDERED: MEROPENEM 500 MG VIAL ONE ×2 (08:13→16:47)
[2020-08-01] MEDS: PANTOPRAZOLE SODIUM 40 MG TABLET.DR PO SCH ×2 (09:00→21:00)
[2020-08-01] MEDS: ENOXAPARIN SODIUM 30 MG/0.3 ML SQ SCH (09:00)
[2020-08-01] MEDS: SODIUM CHLORIDE 0.9% 1000ML 1,000 ML IV SCH ×2 (09:45→23:05)
[2020-08-01] MEDS ORDERED: ACETAMINOPHEN-CODEINE 300/30MG TAB ONE ×2 (10:56→16:47)
[2020-08-01] MEDS ORDERED: INSULIN HUMULIN R 100 UNIT/ML 3ML ONE (12:06)
[2020-08-02] MEDS ORDERED: MEROPENEM 500 MG VIAL ONE (01:44)
[2020-08-02] MEDS: MEROPENEM 500 MG VIAL IVP SCH ×3 (01:45→17:33)
[2020-08-02 05:45] VITALS: BP 157/80
[2020-08-02] MEDS: ACETAMINOPHEN-CODEINE 300/30MG TAB PO PRN ×3 (06:55→20:56)
[2020-08-02] MEDS: INSULIN HUMULIN R 100 UNIT/ML 3ML SQ SCH ×4 (07:30→20:57)
[2020-08-02] MEDS: SODIUM CHLORIDE 0.9% 1000ML 1,000 ML IV SCH (07:48)
[2020-08-02] MEDS: ENOXAPARIN SODIUM 30 MG/0.3 ML SQ SCH (08:36)
[2020-08-02] MEDS: PANTOPRAZOLE SODIUM 40 MG TABLET.DR PO SCH ×2 (08:36→20:55)
[2020-08-02 09:13] VITALS: BP 162/69
[2020-08-02 12:39] VITALS: BP 170/73
[2020-08-02 16:27] VITALS: BP 157/89
[2020-08-02 20:00] VITALS: BP 136/75
[2020-08-03] VITALS (25 sets, daily range): BP systolic 112–176; BP diastolic 57–95
[2020-08-03] MEDS: MEROPENEM 500 MG VIAL IVP SCH ×3 (01:45→17:28)
[2020-08-03] MEDS: SODIUM CHLORIDE 0.9% 1000ML 1,000 ML IV SCH (01:46)
[2020-08-03] MEDS: INSULIN HUMULIN R 100 UNIT/ML 3ML SQ SCH ×4 (07:30→21:52)
[2020-08-03] MEDS: PANTOPRAZOLE SODIUM 40 MG TABLET.DR PO SCH ×2 (08:44→21:46)
[2020-08-03] MEDS: ENOXAPARIN SODIUM 30 MG/0.3 ML SQ SCH (08:44)
[2020-08-03] MEDS ORDERED: LIDOCAINE PF 2% 5ML ABBOJECT ONE (14:26)
[2020-08-03] MEDS ORDERED: DEXAMETHASONE SOD PHOSPHATE 10MG/ML 1ML VIAL ONE (14:26)
[2020-08-03] MEDS ORDERED: PROPOFOL 10 MG/ML 20ML VIAL IV ONE (14:26)
[2020-08-03] MEDS ORDERED: ONDANSETRON HCL 4 MG/2 ML VIAL ONE (14:27)
[2020-08-03] MEDS ORDERED: FENTANYL CITRATE PF 50 MCG/1 ML 2ML VIAL ONE (14:27)
[2020-08-03] MEDS ORDERED: MEPERIDINE-PF 25 MG/ML SYG ONE (14:34)
[2020-08-03] MEDS ORDERED: MIDAZOLAM HCL 1 MG/ML 2ML VIAL ONE (14:34)
[2020-08-03] MEDS ORDERED: CEFAZOLIN SODIUM 1 GM VIAL ONE (15:01)
[2020-08-03] MEDS: ACETAMINOPHEN-CODEINE 300/30MG TAB PO PRN (21:48)
[2020-08-04] VITALS (7 sets, daily range): BP systolic 132–163; BP diastolic 72–85
[2020-08-04] MEDS ORDERED: INSULIN HUMULIN R 100 UNIT/ML 3ML SQ ONE (00:30)
[2020-08-04] MEDS ORDERED: INSULIN HUMULIN R 100 UNIT/ML 3ML ONE (00:48)
[2020-08-04] MEDS: MEROPENEM 500 MG VIAL IVP SCH ×3 (01:21→17:27)
[2020-08-04 05:08] LABS: HEMATOCRIT 21.1 % (42-54); MEAN CORPUSCULAR HEMOGLOBIN 30.6 pg (27.0-33.0); MEAN CORPUSCULAR VOLUME 85.1 fL (79-99); RED BLOOD CELL COUNT(AUTO) 2.48 MIL/uL (4.50-6.20); RED CELL DISTRIBUTION WIDTH 11.9 % (11.0-15.5)
[2020-08-04 05:30] LABS: CREATININE 0.8 mg/dL (0.5-1.5); CRP QUANTITATIVE 37.3 mg/L (0.00-9.0); POTASSIUM 4.2 mmol/L (3.5-5.1)
[2020-08-04] MEDS: SODIUM CHLORIDE 0.9% 1000ML 1,000 ML IV SCH ×2 (06:12→06:20)
[2020-08-04] MEDS: INSULIN HUMULIN R 100 UNIT/ML 3ML SQ SCH ×4 (06:18→22:03)
[2020-08-04] MEDS: METFORMIN HCL 500 MG TABLET PO SCH ×3 (08:06→17:27)
[2020-08-04] MEDS: PANTOPRAZOLE SODIUM 40 MG TABLET.DR PO SCH ×2 (08:06→22:01)
[2020-08-04] MEDS: ENOXAPARIN SODIUM 30 MG/0.3 ML SQ SCH (08:07)
[2020-08-04] MEDS: ACETAMINOPHEN-CODEINE 300/30MG TAB PO PRN (17:27)
[2020-08-05] VITALS (7 sets, daily range): BP systolic 152–166; BP diastolic 53–94
[2020-08-05] MEDS: MEROPENEM 500 MG VIAL IVP SCH ×2 (02:50→09:21)
[2020-08-05] MEDS: SODIUM CHLORIDE 0.9% 1000ML 1,000 ML IV SCH ×2 (02:50→18:17)
[2020-08-05 06:52] LABS: BASOPHILS % (AUTO) 0.3 % (0.0-5.0); EOSINOPHILS % (AUTO) 1.4 % (0.0-8.0); LYMPHOCYTES % (AUTO) 21.7 % (21.0-51.0); MEAN CORPUSCULAR HEMOGLOBIN 30.3 pg (27.0-33.0); MEAN CORPUSCULAR HGB CONC 34.6 g/dL (32.0-36.0); MEAN CORPUSCULAR VOLUME 87.6 fL (79-99); MONOCYTES % (AUTO) 8.5 % (3.0-13.0); NEUTROPHILS % (AUTO) 63.6 % (40.0-77.0); PLATELET COUNT (AUTO) 131 K/uL (130-400); RED BLOOD CELL COUNT(AUTO) 2.34 MIL/uL (4.50-6.20); RED CELL DISTRIBUTION WIDTH 12.1 % (11.0-15.5); WHITE BLOOD COUNT (AUTO) 9.1 K/uL (4.8-10.8)
[2020-08-05 07:03] LABS: ALBUMIN 1.7 g/dL (3.5-5.0); BILIRUBIN,TOTAL 0.3 mg/dL (0.2-1.0); CREATININE 0.9 mg/dL (0.5-1.5); POTASSIUM 4.2 mmol/L (3.5-5.1); TOTAL PROTEIN, SERUM 5.9 g/dL (6.0-8.3)
[2020-08-05] MEDS: INSULIN HUMULIN R 100 UNIT/ML 3ML SQ SCH ×3 (07:30→15:14)
[2020-08-05 08:43] LABS: HEMATOCRIT 20.5 % (42-54)
[2020-08-05] MEDS: PANTOPRAZOLE SODIUM 40 MG TABLET.DR PO SCH ×2 (08:53→21:25)
[2020-08-05] MEDS: ENOXAPARIN SODIUM 30 MG/0.3 ML SQ SCH (08:54)
[2020-08-05] MEDS: METFORMIN HCL 500 MG TABLET PO SCH ×3 (08:55→16:02)
[2020-08-05] MEDS: CEFUROXIME AXETIL 250 MG TABLET PO SCH (15:58)
[2020-08-05] MEDS ORDERED: COMPOUND IV MISC 1 EACH IVSOLN MISC PRN (18:30)
[2020-08-05] MEDS ORDERED: EPOETIN ALFA 10,000 UNIT/ML VIAL SQ SCH (20:00)
[2020-08-05] MEDS ORDERED: EPOETIN ALFA-EPBX (NON-ESRD) 10,000 UNIT/ML VIAL SQ ONE (22:00)
[2020-08-06] MEDS: INSULIN HUMULIN R 100 UNIT/ML 3ML SQ SCH ×4 (00:07→15:58)
[2020-08-06] MEDS: CEFUROXIME AXETIL 250 MG TABLET PO SCH ×2 (00:10→11:43)
[2020-08-06 03:50] VITALS: BP 165/85
[2020-08-06 07:12] LABS: MEAN CORPUSCULAR HEMOGLOBIN 30.9 pg (27.0-33.0); MEAN CORPUSCULAR HGB CONC 35.3 g/dL (32.0-36.0); MEAN CORPUSCULAR VOLUME 87.7 fL (79-99); RED BLOOD CELL COUNT(AUTO) 2.36 MIL/uL (4.50-6.20); RED CELL DISTRIBUTION WIDTH 12.8 % (11.0-15.5); WHITE BLOOD COUNT (AUTO) 9.2 K/uL (4.8-10.8)
[2020-08-06 07:51] LABS: CREATININE 0.9 mg/dL (0.5-1.5); CRP QUANTITATIVE 26.8 mg/L (0.00-9.0); POTASSIUM 3.8 mmol/L (3.5-5.1)
[2020-08-06 08:26] VITALS: BP 155/94
[2020-08-06 08:59] LABS: HEMATOCRIT 20.7 % (42-54)
[2020-08-06] MEDS ORDERED: ASCORBIC ACID 500 MG TAB PO SCH (09:00)
[2020-08-06] MEDS ORDERED: IRON SUCROSE COMPLEX 300 MG in SODIUM CHLORIDE 0.9% 250 ML IV SCH (09:00)
[2020-08-06] MEDS ORDERED: ZINC SULFATE 220 CAPSULE PO SCH (09:00)
[2020-08-06] MEDS: PANTOPRAZOLE SODIUM 40 MG TABLET.DR PO SCH (09:01)
[2020-08-06] MEDS: METFORMIN HCL 500 MG TABLET PO SCH ×3 (09:01→17:01)
[2020-08-06] MEDS ORDERED: METF-444 PO (10:37)
[2020-08-06] MEDS ORDERED: TYL3B PO (10:37)
[2020-08-06] MEDS ORDERED: CEFU500T67 PO (10:37)
[2020-08-06] MEDS ORDERED: PANT40TA PO (10:37)
[2020-08-06] MEDS ORDERED: FLUCONAZOLE 100 MG TAB PO SCH (11:55)
[2020-08-06] MEDS ORDERED: FLUC200T8 PO (12:04)
[2020-08-06 12:14] VITALS: BP 157/72
[2020-08-06 16:24] VITALS: BP 145/71
[2020-08-06 17:45] LABS: BASOPHILS % (AUTO) 0.6 % (0.0-5.0); EOSINOPHILS % (AUTO) 1.1 % (0.0-8.0); HEMATOCRIT 26.4 % (42-54); LYMPHOCYTES % (AUTO) 21.2 % (21.0-51.0); MEAN CORPUSCULAR HEMOGLOBIN 30.4 pg (27.0-33.0); MEAN CORPUSCULAR HGB CONC 35.2 g/dL (32.0-36.0); MEAN CORPUSCULAR VOLUME 86.3 fL (79-99); MONOCYTES % (AUTO) 9.2 % (3.0-13.0); NUCLEATED RED BLOOD CELLS 0.2 % (0.0-0.19); PLATELET COUNT (AUTO) 217 K/uL (130-400); RED BLOOD CELL COUNT(AUTO) 3.06 MIL/uL (4.50-6.20); RED CELL DISTRIBUTION WIDTH 13.2 % (11.0-15.5); WHITE BLOOD COUNT (AUTO) 9.7 K/uL (4.8-10.8)
== END 2020-08-06 19:50 | disposition home or self-care (01) | DRG 907 ==
LOC: EDH 12:24 → EDHIP 12:25 → 2DH 08-02 06:00
PROVIDERS: ADMIT Internal Medicine; ATTEND Internal Medicine
PROC: 30233N1 Transfusion of Nonautologous Red Blood Cells into Peripheral Vein, Percutaneous Approach (ICD-10-PCS; 2020-08-03)
PROC: 0KBS0ZZ Excision of Right Lower Leg Muscle, Open Approach (ICD-10-PCS; principal; 2020-08-03 15:04)
DX: T81.30XA Disruption of wound, unspecified, initial encounter (principal); U07.1 COVID-19; E43 Unspecified severe protein-calorie malnutrition; J12.89 Other viral pneumonia; L03.115 Cellulitis of right lower limb; Z16.12 Extended spectrum beta lactamase (ESBL) resistance; L02.415 Cutaneous abscess of right lower limb; L97.819 Non-pressure chronic ulcer of other part of right lower leg with unspecified severity; M00.00 Staphylococcal arthritis, unspecified joint; E11.621 Type 2 diabetes mellitus with foot ulcer; R59.0 Localized enlarged lymph nodes; B95.61 Methicillin susceptible Staphylococcus aureus infection as the cause of diseases classified elsewhere; I10 Essential (primary) hypertension; B96.1 Klebsiella pneumoniae [K. pneumoniae] as the cause of diseases classified elsewhere; Y83.8 Other surgical procedures as the cause of abnormal reaction of the patient, or of later complication, without mention of misadventure at the time of the procedure; D50.0 Iron deficiency anemia secondary to blood loss (chronic); Y92.89 Other specified places as the place of occurrence of the external cause; Z68.22 Body mass index [BMI] 22.0-22.9, adult; Z91.19 Patient's noncompliance with other medical treatment and regimen; Z83.3 Family history of diabetes mellitus; Z83.6 Family history of other diseases of the respiratory system
CPT/HCPCS: 36415; 36430; 73562; 73700; 80048; 80053; 82948; 83605; 83735; 83880; 84145; 85025; 85027; 85651; 86140; 86850; 86900; 86901; 86923; 87040; 87070; 87076; 87077; 87186; 87426; C9113; G0378; J0690; J0885; J1100; J1650; J1756; J1815; J2001; J2175; J2185; J2250; J2405; J2704; J3010; J7030; J7050; P9016; U0003

== ENCOUNTER 2023-07-08 14:00 | Inpatient (IN) | payer OTHER ==
[2023-07-05 14:15] LABS: BASOPHILS # (AUTO) 0.04 K/uL (0.00-0.20); BASOPHILS % (AUTO) 0.5 % (0.0-5.0); EOSINOPHILS # (AUTO) 0.26 K/uL (0.00-0.70); EOSINOPHILS % (AUTO) 3.1 % (0.0-8.0); HEMATOCRIT 33.7 % (42-54); IMMATURE GRANULOCYTE ABSOLUTE 0.07 K/uL (0-1); LYMPHOCYTES # (AUTO) 2.3 K/uL (1.0-4.8); LYMPHOCYTES % (AUTO) 27.4 % (21.0-51.0); MEAN CORPUSCULAR HEMOGLOBIN 31.7 pg (27.0-33.0); MEAN CORPUSCULAR HGB CONC 35.6 g/dL (32.0-36.0); MEAN CORPUSCULAR VOLUME 88.9 fL (79-99); MONOCYTES # (AUTO) 0.5 K/uL (0.1-1.0); MONOCYTES % (AUTO) 6.4 % (3.0-13.0); NEUTROPHILS # (AUTO) 5.1 K/uL (1.8-7.7); NEUTROPHILS % (AUTO) 61.8 % (40.0-77.0); PLATELET COUNT (AUTO) 213 K/uL (130-400); RED BLOOD CELL COUNT(AUTO) 3.79 MIL/uL (4.50-6.20); RED CELL DISTRIBUTION WIDTH 12.6 % (11.0-15.5); WHITE BLOOD COUNT (AUTO) 8.3 K/uL (4.8-10.8)
[2023-07-05 14:27] LABS: INR < 0.93 (0.85-1.15); PROTHROMBIN TIME 10.5 SEC (9.6-11.6)
[2023-07-05 14:28] LABS: PARTIAL THROMBOPLASTIN TIME 27.8 SEC (26.3-35.5)
[2023-07-05 14:30] LABS: ALBUMIN 3.4 g/dL (3.5-5.0); BILIRUBIN,TOTAL 0.4 mg/dL (0.2-1.0); CREATININE 1.8 mg/dL (0.5-1.5); POTASSIUM 5.1 mmol/L (3.5-5.1); TOTAL PROTEIN, SERUM 8.4 g/dL (6.0-8.3)
[~2023-07-08] VITALS: Ht 157.5 cm; Wt 66.5 kg
[2023-07-09 08:56] VITALS: BP 200/95; PULSE 79; RESP 19
[2023-07-09] MEDS ORDERED: OLME20TA68 PO (09:22)
[2023-07-09] MEDS ORDERED: OMEP40CA21 PO (09:22)
[2023-07-09] MEDS ORDERED: METF-444 PO (09:22)
[2023-07-10] VITALS (24 sets, daily range): BP systolic 138–191; BP diastolic 64–103; PULSE 78–104; RESP 15–18
[2023-07-10] MEDS ORDERED: INVANZ 1GM+NS 50ML IVPB 50 ML IV SCH (07:00)
[2023-07-10] MEDS ORDERED: 0.9%NACL 1000ML 1,000 ML IV ONE ×2 (09:16→14:04)
[2023-07-10 09:25] LABS: CREATININE 1.8 mg/dL (0.5-1.5); POTASSIUM 4.3 mmol/L (3.5-5.1)
[2023-07-10] MEDS ORDERED: OLME-11 PO (10:23)
[2023-07-10] MEDS ORDERED: LIDOCAINE PF 100MG/5ML (2%) SYRINGE 5ML ONE (13:11)
[2023-07-10] MEDS ORDERED: DEXAMETHASONE SOD PHOSPHATE 10MG/ML 1ML VIAL ONE (13:11)
[2023-07-10] MEDS ORDERED: SUCCINYLCHOLINE 200MG/10ML SYR ONE (13:11)
[2023-07-10] MEDS ORDERED: MIDAZOLAM HCL 1 MG/ML 2ML VIAL ONE (13:12)
[2023-07-10] MEDS ORDERED: ONDANSETRON 4MG INJ ONE ×2 (13:12→18:56)
[2023-07-10] MEDS ORDERED: GLYCOPYRROLATE 1 MG/5 ML SYRINGE ONE (13:12)
[2023-07-10] MEDS ORDERED: NEOSTIGMINE 5MG/5ML SYR IV ONE (13:12)
[2023-07-10] MEDS ORDERED: ROCURONIUM 10MG/1ML SYR 10 MG/ML ML ONE ×2 (13:13→15:32)
[2023-07-10] MEDS ORDERED: PROPOFOL 10 MG/ML 20ML VIAL IV ONE (13:13)
[2023-07-10] MEDS ORDERED: FENTANYL CITRATE PF 50 MCG/1 ML 2ML VIAL ONE ×2 (13:15→15:30)
[2023-07-10] MEDS ORDERED: BUPIVACAINE/PF 0.5% 30ML VIAL ONE (14:25)
[2023-07-10] MEDS ORDERED: LIDOCAINE HCL/EPINEPHRINE 50 ML VIAL IJ ONE (14:25)
[2023-07-10] MEDS ORDERED: INDOCYANINE GREEN 25 MG VIAL IJ ONE (14:27)
[2023-07-10] MEDS ORDERED: ROPIVACAINE 0.5% 5MG/ML 30ML ONE (14:38)
[2023-07-10] MEDS ORDERED: FENTANYL CITRATE PF 50 MCG/1 ML 5ML AMP IV ONE (15:53)
[2023-07-10] MEDS ORDERED: BUPIVACAINE/PF 0.5% 30ML VIAL INJ ONE ×2 (16:10→18:15)
[2023-07-10] MEDS ORDERED: LIDOCAINE 1%-EPI 1:100,000 20 ML VIAL IJ ONE ×2 (16:11→18:15)
[2023-07-10] MEDS ORDERED: D5W-1/2 NS/20MEQ KCL 1,000 ML IV SCH (18:30)
[2023-07-10] MEDS ORDERED: ACETAMINOPHEN 650 MG SUPPOSITORY RC PRN (18:30)
[2023-07-10] MEDS ORDERED: ONDANSETRON 4MG INJ IVP PRN (18:30)
[2023-07-10] MEDS ORDERED: MEPERIDINE-PF 25 MG/ML SYG ONE (18:57)
[2023-07-10] MEDS ORDERED: HYDRALAZINE 20MG/ML VIAL ONE (19:11)
[2023-07-10] MEDS: HEPARIN 5,000 UNIT VIAL SQ SCH (21:13)
[2023-07-11] VITALS (11 sets, daily range): BP systolic 126–182; BP diastolic 59–98; PULSE 64–110; RESP 18–20; O2SAT 95–100
[2023-07-11] MEDS ORDERED: LABETALOL 20MG VIAL IV ONE
[2023-07-11] MEDS: MORPHINE 4 MG SYG IV PRN ×3 (00:07→17:07)
[2023-07-11] MEDS ORDERED: GLUCAGON 1MG KIT 1 MG ML IM PRN (01:00)
[2023-07-11] MEDS ORDERED: DEXTROSE 50%-WATER 50 ML DISP.SYRIN IV PRN (01:00)
[2023-07-11] MEDS: INSULIN HUMULIN R 100 UNIT/ML 3ML SQ SCH ×6 (06:16→21:00)
[2023-07-11 07:18] LABS: BASOPHILS # (AUTO) 0.02 K/uL (0.00-0.20); BASOPHILS % (AUTO) 0.2 % (0.0-5.0); HEMATOCRIT 33.3 % (42-54); IMMATURE GRANULOCYTE ABSOLUTE 0.08 K/uL (0-1); LYMPHOCYTES # (AUTO) 1.1 K/uL (1.0-4.8); LYMPHOCYTES % (AUTO) 8.2 % (21.0-51.0); MEAN CORPUSCULAR HEMOGLOBIN 31.6 pg (27.0-33.0); MEAN CORPUSCULAR HGB CONC 35.4 g/dL (32.0-36.0); MEAN CORPUSCULAR VOLUME 89.3 fL (79-99); MONOCYTES % (AUTO) 7.2 % (3.0-13.0); NEUTROPHILS # (AUTO) 11.2 K/uL (1.8-7.7); NEUTROPHILS % (AUTO) 83.8 % (40.0-77.0); PLATELET COUNT (AUTO) 219 K/uL (130-400); RED BLOOD CELL COUNT(AUTO) 3.73 MIL/uL (4.50-6.20); RED CELL DISTRIBUTION WIDTH 12.5 % (11.0-15.5); WHITE BLOOD COUNT (AUTO) 13.3 K/uL (4.8-10.8)
[2023-07-11 07:36] LABS: ALBUMIN 2.9 g/dL (3.5-5.0); BILIRUBIN,TOTAL 0.4 mg/dL (0.2-1.0); MAGNESIUM 1.7 mg/dL (1.80-2.40); POTASSIUM 5.2 mmol/L (3.5-5.1); TOTAL PROTEIN, SERUM 7.8 g/dL (6.0-8.3)
[2023-07-11] MEDS: HEPARIN 5,000 UNIT VIAL SQ SCH ×3 (07:52→22:30)
[2023-07-11] MEDS ORDERED: METOPROLOL TARTRATE 1 MG/ML 5ML VIAL IV PRN (09:00)
[2023-07-11] MEDS ORDERED: MAGNESIUM 2GM PREMIX 50ML 50 ML IV PRN ×2 (09:00→16:00)
[2023-07-11] MEDS ORDERED: OLMESARTAN HCTZ PO SCH (09:00)
[2023-07-11] MEDS: CEFTRIAXONE 2GM VIAL IVPB SCH (09:45)
[2023-07-12] VITALS: BP 159/93; PULSE 102; RESP 18
[2023-07-12] MEDS: HYDROCODONE/ACETAMINOPHEN 5/325 MG TAB PO PRN ×2 (03:53→15:18)
[2023-07-12 04:00] VITALS: BP 161/94; PULSE 101; RESP 20
[2023-07-12 05:19] LABS: BASOPHILS # (AUTO) 0.02 K/uL (0.00-0.20); BASOPHILS % (AUTO) 0.2 % (0.0-5.0); HEMATOCRIT 28.1 % (42-54); IMMATURE GRANULOCYTE ABSOLUTE 0.08 K/uL (0-1); LYMPHOCYTES # (AUTO) 1.9 K/uL (1.0-4.8); MEAN CORPUSCULAR HEMOGLOBIN 31.7 pg (27.0-33.0); MEAN CORPUSCULAR HGB CONC 34.9 g/dL (32.0-36.0); MEAN CORPUSCULAR VOLUME 90.9 fL (79-99); MONOCYTES # (AUTO) 1.3 K/uL (0.1-1.0); MONOCYTES % (AUTO) 10.8 % (3.0-13.0); NEUTROPHILS # (AUTO) 8.6 K/uL (1.8-7.7); NEUTROPHILS % (AUTO) 72.3 % (40.0-77.0); PLATELET COUNT (AUTO) 177 K/uL (130-400); RED BLOOD CELL COUNT(AUTO) 3.09 MIL/uL (4.50-6.20); RED CELL DISTRIBUTION WIDTH 12.6 % (11.0-15.5); WHITE BLOOD COUNT (AUTO) 11.8 K/uL (4.8-10.8)
[2023-07-12 05:34] LABS: CREATININE 1.9 mg/dL (0.5-1.5); POTASSIUM 4.1 mmol/L (3.5-5.1)
[2023-07-12] MEDS: INSULIN HUMULIN R 100 UNIT/ML 3ML SQ SCH ×6 (06:06→17:00)
[2023-07-12 07:39] VITALS: O2SAT 95
[2023-07-12 08:00] VITALS: BP 152/93; PULSE 98; RESP 16
[2023-07-12] MEDS: CEFTRIAXONE 2GM VIAL IVPB SCH (08:22)
[2023-07-12] MEDS: HEPARIN 5,000 UNIT VIAL SQ SCH ×2 (08:23→15:17)
[2023-07-12] MEDS ORDERED: AMLODIPINE 5 MG TAB PO SCH (09:00)
[2023-07-12 12:00] VITALS: BP 166/77; PULSE 92; RESP 16
[2023-07-12 16:00] VITALS: BP 161/58; PULSE 105; RESP 18
== END 2023-07-12 18:10 | disposition home or self-care (01) | DRG 330 ==
LOC: DAHIP 07-10 08:38 → 3AH 07-10 19:30
PROVIDERS: ADMIT Surgery; ATTEND Surgery
PROC: 0WUF07Z Supplement Abdominal Wall with Autologous Tissue Substitute, Open Approach (ICD-10-PCS; 2023-07-10)
PROC: 8E0W0CZ Robotic Assisted Procedure of Trunk Region, Open Approach (ICD-10-PCS; 2023-07-10)
PROC: 0DTF0ZZ Resection of Right Large Intestine, Open Approach (ICD-10-PCS; principal; 2023-07-10 14:54)
DX: C18.2 Malignant neoplasm of ascending colon (principal); E87.1 Hypo-osmolality and hyponatremia; N17.9 Acute kidney failure, unspecified; E11.9 Type 2 diabetes mellitus without complications; D64.9 Anemia, unspecified; I10 Essential (primary) hypertension; K76.0 Fatty (change of) liver, not elsewhere classified; Z82.5 Family history of asthma and other chronic lower respiratory diseases; Z83.3 Family history of diabetes mellitus; Z86.010 Personal history of colon polyps; Z87.19 Personal history of other diseases of the digestive system
CPT/HCPCS: 36415; 80048; 80053; 82948; 83735; 83880; 85025; 85610; 85730; 86850; 86900; 86901; 93005; A4344; G0378; J0330; J0360; J0696; J1100; J1335; J1644; J1815; J2001; J2175; J2250; J2270; J2405; J2704; J2710; J2795; J3010; J3475; J3480; J3490; J7030; J7120; A4215; A4221; A4222; A4223; A4600; A4649; A6260; C1769; G0168; G8980-CI; G8983-CI; J0665